=== PATIENT | male | born 1980 | race Caucasian/White ===

== ENCOUNTER 2018-12-22 17:01 | Emergency (ER) | payer OTHER ==
[~2018-12-22] VITALS: Ht 162.6 cm; Wt 93.9 kg
[2018-12-22 17:18] VITALS: BP 135/85
--- NOTE | 2018-12-22 17:29 | NUR ---
PT AMBULATED TO CHAIR WITH FAMILY/FRIEND
--- NOTE | 2018-12-22 17:35 | NUR ---
38/M PRESENTS TO ED WITH FAMILY/FRIEND, C/O L 1ST TOE INGROWN TOENAIL, NOTED WITH ERYTHEMA AND SWELLING, REPORTS TENDERNESS; X1 WEEK. PT STATED THAT ENTIRE TOENAIL WAS REMOVED 1 YEAR AGO, AND THE TOENAIL HAS BEEN GROWING IN. PT STATED THAT HE HAS BEEN TAKING TERBINAFINE MED FOR FUNGAL INFECTION X1 YEAR. PT AWAKE AND ALERT, SKIN NORMAL COLOR WARM AND DRY, RR EVEN AND UNLABORED. HX HTN, DM RX METFORMIN, HTN MED, TERBINAFINE
--- NOTE | 2018-12-22 17:51 | NUR ---
MANOLO LEÓN AT BEDSIDE. PT STATED THAT HE IS NOT WILLING TO WAIT FOR LEFT INGROWN TOENAIL PROCEDURE, PT AGREED TO TAKE ANTIBIOTICS AT HOME AND SOAK TOE. PT INSTRUCTED TO COME BACK IF S/S WORSEN OR WITHOUT IMPROVEMENT.
[2018-12-22 17:59] VITALS: BP 126/76
--- NOTE | 2018-12-22 17:59 | NUR ---
Patient discharged with v/s stable. Written and verbal after care instructions given and explained. Patient alert, oriented and verbalized understanding of instructions. Ambulatory with steady gait. All questions addressed prior to discharge. ID band removed. Patient advised to follow up with PMD. Rx of KEFLEX, IBUPROFEN given. Patient educated on indication of medication including possible reaction and side effects. Opportunity to ask questions provided and answered.
== END 2018-12-22 17:59 | disposition home or self-care (01) ==
LOC: MED 17:01
DX: L60.0 Ingrowing nail (principal); I10 Essential (primary) hypertension; E11.9 Type 2 diabetes mellitus without complications
CPT/HCPCS: 99283

== ENCOUNTER 2019-01-19 18:36 | Emergency (ER) | payer OTHER ==
[~2019-01-19] VITALS: Ht 162.6 cm; Wt 96.2 kg
[2019-01-19 18:47] VITALS: BP 122/78
--- NOTE | 2019-01-19 18:53 | NUR ---
PT AMBULATED TO BED 07.
--- NOTE | 2019-01-19 19:20 | NUR ---
pt arrived to ed c/o n,v,body aches, cold sx x 4 days. rates pain 7/10 and describes it as aching. pt sates he took ibprofen in am today and thermaflu 2 hrs ago. abd is rounds hard. denies nay diarrhea. has vomiting episdoes (4 total). dry cough present. lung sounds clear all thorughout. spo2 95% ra. pt states he also has a fever,moist,diaphorsis, clammy. nka. pmh; htn, high cholesterol.
[2019-01-19 19:22] VITALS: BP 122/78
--- NOTE | 2019-01-19 19:27 | NUR ---
temp at triage was 97.7
--- NOTE | 2019-01-19 19:27 | NUR ---
nhi smith at bedside.
--- NOTE | 2019-01-19 19:49 | NUR ---
flu swab collected and given to lab.
[2019-01-19] MEDS: KETOROLAC 30 MG/ML VIAL IM ONE (19:53)
--- NOTE | 2019-01-19 20:47 | NUR ---
Patient discharged with v/s stable. Written and verbal after care instructions given and explained. Patient alert, oriented and verbalized understanding of instructions. Ambulatory with steady gait. All questions addressed prior to discharge. ID band removed. Patient advised to follow up with PMD. Rx of naprosyn, tylenol, and tamiflu given. Patient educated on indication of medication including possible reaction and side effects. Opportunity to ask questions provided and answered.
== END 2019-01-19 20:47 | disposition home or self-care (01) ==
LOC: MED 18:36
DX: J11.1 Influenza due to unidentified influenza virus with other respiratory manifestations (principal); I10 Essential (primary) hypertension; E11.9 Type 2 diabetes mellitus without complications; Z98.890 Other specified postprocedural states
CPT/HCPCS: 87804; 96372; 99283; J1885

== ENCOUNTER 2020-05-01 19:44 | Emergency (ER) | payer OTHER ==
[~2020-05-01] VITALS: Ht 167.6 cm; Wt 97.7 kg
[2020-05-01 20:04] VITALS: BP 135/88
--- NOTE | 2020-05-01 20:14 | NUR ---
To ED bed 07 with w/c .
[2020-05-01 20:17] VITALS: BP 135/88
--- NOTE | 2020-05-01 20:19 | NUR ---
see complete assessment.
--- NOTE | 2020-05-01 20:29 | NUR ---
X-RAY AT BEDSIDE.
--- NOTE | 2020-05-01 20:49 | NUR ---
Dr. Alexis with pt for MSE.
[2020-05-01] MEDS ORDERED: HYDROcodone/APAP 5/325 MG 1 TAB TAB PO ONE (21:00)
--- NOTE | 2020-05-01 21:29 | NUR ---
Patient discharged with v/s stable. Written and verbal after care instructions given and explained. Patient verbalized understanding. Ambulatory with steady gait. All questions addressed prior to discharge. Advised to follow up with PMD.
== END 2020-05-01 21:29 | disposition home or self-care (01) ==
LOC: MED 19:44
DX: M25.572 Pain in left ankle and joints of left foot (principal); E11.9 Type 2 diabetes mellitus without complications; I10 Essential (primary) hypertension; X50.9XXA Other and unspecified overexertion or strenuous movements or postures, initial encounter; Y93.89 Activity, other specified; Y92.89 Other specified places as the place of occurrence of the external cause; Y99.8 Other external cause status
CPT/HCPCS: 73590; 73610; 73630; 99284